=== PATIENT | male | born 1960 | race Caucasian/White ===

== ENCOUNTER → 2017-05-24 | Outpatient (CLI) | payer OTHER ==
--- NOTE | 2017-05-24 17:37 | 2DMMODE ---
[place] [address] 2 D/M-MODE ECHOCARDIOGRAM Name: SAW PROCTOR Room: [facility]#: [id number] Admission: 05/24/17 Attend Phys: Patrick Arechiga Discharge: Date of : 58 Date of Service: 05/24/17 1736 Report #: [id number] THIS REPORT FOR: //name// APPROVED REPORT Study performed: 05/24/2017 09:03:12 EXAM: Comprehensive 2D, Doppler, and color-flow Echocardiogram Patient Location: Out-Patient Status: routine BSA: 2.44 HR: 64 bpm BP: 126/73 mmHg Other Information Study Quality: Adequate Indications Murmur Hypertension/HDD 2D Dimensions LVEF(%): 76.20 (>50%) IVSd: 14.05 (7-11mm) LVOT Diam: 19.99 (18-24mm) LVDd: 55.46 mm PWd: 12.69 (7-11mm) Ascending Ao: 31.08 (22-36mm) LVDs: 30.27 (25-40mm) Aortic Root: 31.21 mm Irby's LVEF: 76.20 % Volumes Left Atrial Volume (Systole) LA ESV Index: 16.80 mL/m2 Aortic Valve AoV Peak Shen.: 1.71 m/s AO Peak Gr.: 11.71 mmHg LVOT Max P.13 mmHg AO Mean Gr.: 6.71 mmHg LVOT Mean P.64 mmHg LVOT Max V: 1.13 m/s AO V2 VTI: 31.47 cm LVOT Mean V: 0.75 m/s LYNNE (VTI): 2.55 cm2 LVOT V1 VTI: 25.58 cm Mitral Valve E/A Ratio: 0.86 [place] [address] 2 D/M-MODE ECHOCARDIOGRAM Name: SAW PROCTOR Room: [facility]#: [id number] Admission: 05/24/17 Attend Phys: Patrick Arechiga Discharge: Date of : 58 Date of Service: 05/24/17 1736 Report #: [id number] MV Decel. Time: 275.57 ms MV E Max Shen.: 0.66 m/s MV PHT: 79.91 ms MVA (PHT): 2.75 cm2 TDI E/Lateral E': 6.00 E/Medial E': 9.43 Medial E' Shen.: 0.07 m/s Lateral E' Shen.: 0.11 m/s Pulmonary Valve PV Peak Shen.: 1.22 m/s PV Peak Gr.: 5.92 mmHg Left Ventricle The left ventricle is normal size. There is normal LV segmental wall motion. Mild concentric left ventricular hypertrophy. Left ventricular systolic function is normal. The left ventricular ejection fraction is within the normal range. LVEF is 60%. Grade I - abnormal relaxation pattern. Right Ventricle The right ventricle is normal size. The right ventricular systolic function is normal. Atria The left atrium size is normal. The right atrium size is normal. Aortic Valve Aortic valve is mildly calcified. No aortic regurgitation is present. There is no aortic valvular stenosis. Mitral Valve The mitral valve is normal in structure. There is no mitral valve regurgitation noted. No evidence of mitral valve stenosis. Tricuspid Valve The tricuspid valve is normal in structure. There is no tricuspid valve regurgitation noted. Pulmonic Valve The pulmonary valve is normal in structure. There is no pulmonic valvular regurgitation. Great Vessels The aortic root is normal in size. IVC [place] [address] 2 D/M-MODE ECHOCARDIOGRAM Name: SAW PROCTOR Room: [facility]#: [id number] Admission: 05/24/17 Attend Phys: Patrick Arechiga Discharge: Date of : 58 Date of Service: 05/24/17 1736 Report #: [id number] collapses with >50% inspiration Pericardium There is no pericardial effusion. <Conclusion> The left ventricle is normal size. Mild concentric left ventricular hypertrophy. Left ventricular systolic function is normal. The left ventricular ejection fraction is within the normal range. LVEF is 60%. Grade I - abnormal relaxation pattern. The right ventricle is normal size. The left atrium size is normal. Aortic valve is mildly calcified. There is no aortic valvular stenosis. The mitral valve is normal in structure. The tricuspid valve is normal in structure. IVC is normal in size and collapses with >50% inspiration There is no pericardial effusion. There is normal LV segmental wall motion. <ELECTRONICALLY SIGNED> By: Shad Holly MD, FACC 05/24/17 1736 1736 1736 Shad Holly MD, FACC /INF
== END ==
LOC: M.CRD 08:53
DX: I10 Essential (primary) hypertension (principal); I70.0 Atherosclerosis of aorta

== ENCOUNTER → 2017-09-01 | Outpatient (CLI) | payer OTHER | LOC: M.WC 07:47 | DX: I87.332 Chronic venous hypertension (idiopathic) with ulcer and inflammation of left lower extremity (principal); L97.822 Non-pressure chronic ulcer of other part of left lower leg with fat layer exposed; E78.2 Mixed hyperlipidemia; N40.1 Benign prostatic hyperplasia with lower urinary tract symptoms; M15.0 Primary generalized (osteo)arthritis; E66.9 Obesity, unspecified; G47.09 Other insomnia; G47.33 Obstructive sleep apnea (adult) (pediatric); Z68.42 Body mass index [BMI] 45.0-49.9, adult; Z96.653 Presence of artificial knee joint, bilateral ==

== ENCOUNTER → 2017-09-07 | Outpatient (CLI) | payer OTHER | LOC: M.WC 01:09 | DX: I87.332 Chronic venous hypertension (idiopathic) with ulcer and inflammation of left lower extremity (principal); L97.822 Non-pressure chronic ulcer of other part of left lower leg with fat layer exposed; E78.2 Mixed hyperlipidemia; M15.0 Primary generalized (osteo)arthritis; N40.1 Benign prostatic hyperplasia with lower urinary tract symptoms; G47.9 Sleep disorder, unspecified; Z68.42 Body mass index [BMI] 45.0-49.9, adult ==

== ENCOUNTER → 2017-09-14 | Outpatient (CLI) | payer OTHER | LOC: M.WC 03:53 | DX: I87.332 Chronic venous hypertension (idiopathic) with ulcer and inflammation of left lower extremity (principal); L97.821 Non-pressure chronic ulcer of other part of left lower leg limited to breakdown of skin; L03.116 Cellulitis of left lower limb; E78.2 Mixed hyperlipidemia; N40.1 Benign prostatic hyperplasia with lower urinary tract symptoms; M15.0 Primary generalized (osteo)arthritis; E66.9 Obesity, unspecified; G47.30 Sleep apnea, unspecified; Z68.42 Body mass index [BMI] 45.0-49.9, adult; Z96.653 Presence of artificial knee joint, bilateral ==

== ENCOUNTER → 2017-09-21 | Outpatient (CLI) | payer OTHER | LOC: M.WC 03:20 | DX: I87.332 Chronic venous hypertension (idiopathic) with ulcer and inflammation of left lower extremity (principal); L97.822 Non-pressure chronic ulcer of other part of left lower leg with fat layer exposed; E78.2 Mixed hyperlipidemia; M15.0 Primary generalized (osteo)arthritis; N40.1 Benign prostatic hyperplasia with lower urinary tract symptoms; G47.9 Sleep disorder, unspecified; Z68.42 Body mass index [BMI] 45.0-49.9, adult ==

== ENCOUNTER → 2017-09-28 | Outpatient (CLI) | payer OTHER | LOC: M.WC 03:55 | DX: I87.332 Chronic venous hypertension (idiopathic) with ulcer and inflammation of left lower extremity (principal); L97.822 Non-pressure chronic ulcer of other part of left lower leg with fat layer exposed; I10 Essential (primary) hypertension; E78.2 Mixed hyperlipidemia; M15.0 Primary generalized (osteo)arthritis; N40.1 Benign prostatic hyperplasia with lower urinary tract symptoms; G47.09 Other insomnia; G47.33 Obstructive sleep apnea (adult) (pediatric); G47.9 Sleep disorder, unspecified; Z68.42 Body mass index [BMI] 45.0-49.9, adult ==

== ENCOUNTER → 2017-10-12 | Outpatient (CLI) | payer OTHER | LOC: M.WC 03:41 | DX: I87.332 Chronic venous hypertension (idiopathic) with ulcer and inflammation of left lower extremity (principal); L97.821 Non-pressure chronic ulcer of other part of left lower leg limited to breakdown of skin; I89.0 Lymphedema, not elsewhere classified; E78.2 Mixed hyperlipidemia; M15.0 Primary generalized (osteo)arthritis; N40.1 Benign prostatic hyperplasia with lower urinary tract symptoms; G47.09 Other insomnia; G47.33 Obstructive sleep apnea (adult) (pediatric); Z68.42 Body mass index [BMI] 45.0-49.9, adult; Z96.653 Presence of artificial knee joint, bilateral ==

== ENCOUNTER → 2018-06-21 | Outpatient (CLI) | payer OTHER ==
--- NOTE | 2018-07-02 20:50 | SLEEP ---
[facility] [address] [place] [address] SLEEP STUDY REPORT Name: SAW PROCTOR Room: [facility]#: [id number] Admission: 06/21/18 Attend Phys: Sherly Junior Discharge: Date of : 58 Report #: [id number] THIS REPORT FOR: //name// CC: Supa Cantrell DO This study has been reviewed in its entirety by a board certified sleep specialist DATE OF SERVICE: 06/21/2018 HOME SLEEP STUDY ATTENDING PHYSICIAN: Dr. Supa Cantrell. The patient is a 57-year-old who weighs 300 pounds with a BMI of 45.6. The patient's [place] score is 5. The patient underwent a home sleep study performed by [facility]. Total recording time was 485 minutes. During the night study, the patient had no obstructive apneas. There were 2 central apneas and no mixed apneas and there were 8 hypopneas. The patient's apnea-hypopnea index was 1.2 per hour with a supine index of 1.6 per hour. Nocturnal oximetry study revealed an average oxygen saturation of 92% with a lowest of 87%. Only 6 minutes were spent in oxygen saturation of less than 90%. Mean heart rate was 52 beats per minute. IMPRESSION: 1. No clinically significant sleep disorder breathing. The patient's apnea-hypopnea index for the entire night was 1.2 per hour. 2. No clinically significant nocturnal hypoxia. RECOMMENDATIONS: 1. The patient does not meet the criteria for CPAP initiation. 2. Weight loss is strongly advised. 3. Avoid MAXILLOFACIAL PROSTHODONTIST depressants. <ELECTRONICALLY SIGNED> By: Brad Silva MD 07/02/182049 1531 1848Ajhonny Silva MD /nt
== END ==
LOC: M.SLEEPLAB 06-14 12:00
DX: G47.33 Obstructive sleep apnea (adult) (pediatric) (principal); E78.5 Hyperlipidemia, unspecified; I10 Essential (primary) hypertension; Z83.3 Family history of diabetes mellitus; Z82.5 Family history of asthma and other chronic lower respiratory diseases